=== PATIENT | male | born 2000 | race Two or more races ===

== ENCOUNTER 2023-08-09 11:44 | Emergency (ER) | payer OTHER ==
[~2023-08-09] VITALS: Ht 170.2 cm; Wt 77.1 kg
[2023-08-09 14:46] LABS: HEMATOCRIT 44.5 % (39.0-48.0); HEMOGLOBIN 15.4 g/dL (13-16.00); MEAN CELL VOLUME 91.5 fL (80.0-100.00); MEAN CORPUSCULAR HEMOGLOBIN 31.7 pg (27.00-32.0); MEAN CORPUSCULAR HGB CONC 34.6 g/dl (32.0-36.0); PLATELET COUNT 218 K/uL (150-450); RED BLOOD COUNT 4.87 M/uL (4.00-6.00); RED CELL DISTRIBUTION WIDTH 13.3 % (11.5-14.5)
== END 2023-08-09 16:18 | disposition home or self-care (01) ==
LOC: ER 11:45
PROVIDERS: General Practice
DX: R07.89 Other chest pain (principal); F84.0 Autistic disorder; Z86.16 Personal history of COVID-19